=== PATIENT | male | born 1985 | race Caucasian/White ===

== ENCOUNTER 2019-04-12 12:35 | Emergency (ER) | payer OTHER, SELFPAY ==
[2019-04-12] VITALS (35 sets, daily range): BP systolic 131–143; BP diastolic 77–105; PULSE 56–85; RESP 9–23; TEMP 36.6; O2SAT 91–100
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
[2019-04-12 13:38] LABS: Abs Immature Grans 0.03 k/cumm (0.0-0.09); Absolute Basophil Count 0.03 k/cumm (0.0-0.2); Absolute Eosinophil Count 0.25 k/cumm (0.0-0.7); Absolute Lymphocyte Count 2.26 k/cumm (1.2-3.4); Absolute Monocyte Count 0.56 k/cumm (0.11-0.7); Absolute Neutrophil Count 4.11 k/cumm (1.2-6.7); Basophils % 0.4; Eosinophils % 3.5; HCT 46.1 % (40.0-50.0); HGB 16.8 g/dL (13.5-17.5); Immature Grans % 0.4; Lymphocytes % 31.2; Mean Corp. HGB Concentration 36.4 g/dL (32.0-36.0); Mean Corpuscular Hemoglobin 29.4 pg (27.0-33.0); Mean Corpuscular Volume 80.7 fL (80-95); Mean Platelet Volume 10.4 fL (8.0-11.0); Monocytes % 7.7; Neutrophils % 56.8; Platelet Count 191 x1000/uL (130-400); RBC 5.71 m/cumm (4.50-6.00); RBC Distribution Width 12.8 % (11.8-14.1); White Blood Cell Count 7.24 k/cumm (4.4-10.8)
[2019-04-12] MEDS: Normal Saline 1,000 ML 1000 ML IV (13:41)
[2019-04-12 13:54] LABS: ALT 60 U/L (12-78); AST 22 U/L (15-37); Albumin 4.2 g/dL (3.4-5.0); Alkaline Phosphatase 105 U/L (46-116); Anion Gap 7.9 mmol/L (3-11); BUN 14 mg/dL (7-18); Bilirubin, Total 0.5 mg/dL (0.2-1.0); CO2 29.1 mmol/L (21.0-32.0); CREATININE 0.95 mg/dL (0.70-1.30); Calcium 8.9 mg/dL (8.5-10.1); Chloride 102 mmol/L (98-107); Glucose 92 mg/dL (70-100); Lipase 102 U/L (73-393); Magnesium 1.9 mg/dL (1.8-2.4); Potassium 3.6 mmol/L (3.5-5.1); Sodium 139 mmol/L (136-145); Total Protein 7.6 g/dL (6.4-8.2); Troponin I 0.06 ng/mL (0.00-0.06)
[2019-04-12] MEDS: Omnipaque 350 MG/ML 100 ML BTL IJ ×2 (14:08→16:29)
[2019-04-12] MEDS: Normal Saline Flush 10 ML SYR IVP (14:09)
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
--- NOTE | 2019-04-12 14:50 | NUR.NOTE ---
Nursing Note: pt placed in cervical collar. pt has denied any neck pain since admission to ER
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
--- NOTE | 2019-04-12 15:00 | NUR.NOTE ---
Nursing Note: pt resting in stretcher with at bedside.
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
[2019-04-12] MEDS: oxyCODONE 5 mg/Acetaminophen 325 mg TAB 2 TAB PO (18:33)
--- NOTE | 2019-04-12 19:06 | NUR.NOTE ---
referral, lab results, imaging and Dr Scott's note faxed to [facility]. [phone].Nursing Note:
== END 2019-04-12 18:41 | disposition home or self-care (01) ==
PROVIDERS: Emergency Provider Physician Assistant
DX: S12.101A Unspecified nondisplaced fracture of second cervical vertebra, initial encounter for closed fracture (principal); S30.1XXA Contusion of abdominal wall, initial encounter; M25.512 Pain in left shoulder; M25.552 Pain in left hip; S20.412A Abrasion of left back wall of thorax, initial encounter; V18.0XXA Pedal cycle driver injured in noncollision transport accident in nontraffic accident, initial encounter; Y93.55 Activity, bike riding
CPT/HCPCS: 36415; 70498; 74177; 80053; 83690; 96361; 96374; 96376; 99285; L0172; 70450; 71260; 72040; 72125; 83735; 84484; 85025; J3490